=== PATIENT | female | born 1975 | race Caucasian/White ===

== ENCOUNTER 2022-03-09 07:55 | Day surgery (SDC) | payer BC ==
[2022-03-03 16:17] LABS: BASOPHILS # (AUTO) 0.1 X10'3 (0-0.2); BASOPHILS % (AUTO) 0.8 % (0-1); EOSINOPHILS # (AUTO) 0.3 X10'3 (0-0.9); EOSINOPHILS % (AUTO) 2.9 % (0-6); LYMPHOCYTES # (AUTO) 2.6 X10'3 (1.1-4.8); MEAN CORPUSCULAR HEMOGLOBIN 27.9 PG (27.0-31.0); MEAN CORPUSCULAR HGB CONC 33.4 g/dL (33.0-36.5); MEAN CORPUSCULAR VOLUME 83.6 FL (78-98); MEAN PLATELET VOLUME 8.1 FL (7.4-10.4); MONOCYTES # (AUTO) 0.6 X10'3 (0-0.9); NEUTROPHILS # (AUTO) 5.2 X10'3 (1.8-7.7); NEUTROPHILS % (AUTO) 59.3 % (42-75); PRE OP HEMOGLOBIN 14.4 g/dL (12.0-16.0); PRE OP PLATELET COUNT 362 X10'3 (140-440); RED BLOOD COUNT 5.14 X10'6 (4.20-5.60); RED CELL DISTRIBUTION WIDTH 13.2 % (11.5-14.5)
[2022-03-03 16:23] LABS: PRE OP INR 1.1 INR; PRE OP PROTIME 10.9 SECONDS (9.0-12.0)
[2022-03-03 16:25] LABS: ALBUMIN 4.1 G/DL (3.4-5.0); ALBUMIN/GLOBULIN RATIO 0.9 (1.1-1.5); ALKALINE PHOSPHATASE 83 IU/L (46-116); BLOOD UREA NITROGEN 17 MG/DL (7-18); BUN/CREATININE RATIO 16.3 (6.6-38.0); CALCIUM 9.4 MG/DL (8.5-10.1); CHLORIDE 101 MMOL/L (99-107); CREATININE 1.04 MG/DL (0.40-0.90); PRE OP ALT 37 U/L (30-65); PRE OP ANION GAP 11 (8-16); PRE OP AST 23 U/L (10-37); PRE OP BILIRUB, TOTAL 0.4 MG/DL (0.0-1.0); PRE OP GLUCOSE 99 MG/DL (70-104); PRE OP POTASSIUM 3.7 MMOL/L (3.4-5.1); PRE OP SODIUM 138 MMOL/L (135-145); TOTAL CARBON DIOXIDE 25.7 MMOL/L (24-32); TOTAL PROTEIN 8.6 G/DL (6.4-8.2); eGFR 57 ML/MIN
[2022-03-09] VITALS (9 sets, daily range): BP systolic 131–160; BP diastolic 92–102
[~2022-03-09] VITALS: Ht 172.7 cm; Wt 108.5 kg
[~2022-03-09 07:55] MED LIST: LIDOcaine 1% W/epiNEPHrine 1:100,000 20ml vial ONE; NORT25CA PO; cocaine 4% topical solution 4ml bottle ONE; diazepam 5mg tablet PO ONE; famotidine 20mg tablet PO ONE; mupirocin 2% ointment 22GM ONE; oxymetazoline 15 ML nasal spray NS ONE; ringers solution, lacted 1,000 ML IV SCH
--- NOTE | 2022-03-09 08:15 | NUR ---
PT PREPPED FOR SURGERY, PT VERY ANXIOUS, BLOOD PRESSURE SLIGHTLY ELEVATED AT 147/102, WILL RECHECK IN AN HOUR PTCRYING WHEN SHE HEARD SHE NEEDED TO REPEAT THE COVID TEST, STATES SHE HAD A BAD EXPERIENCE AND IT WAS VERY PAINFUL, TESTING COMPLETED WITHOUT DIFFICULTY. I TRIED TWICE FOR HER IV, FELISHA ZARATE TRIED TWICE ALSO AND WAS ABLE TO GET IT IN THE LEFT AC. BLOOD SUGAR 114. PT COMPLAINS OF CHRONIC FACIAL PAIN AFTER JAW SURGERY
--- NOTE | 2022-03-09 09:47 | NUR ---
BLOOD PRESSURE RECHECKED NOW 128/85, PATIENT STATES SHE FEELS CALMER
[2022-03-09] MEDS ORDERED: midazolam 1 mg/ML 2ml injection ONE (10:22)
[2022-03-09] MEDS ORDERED: fentaNYL/PF 50MCG/1 ML 2ML syringe ONE (10:22)
[2022-03-09] MEDS ORDERED: propofol inj 20 ML IV ONE (10:22)
[2022-03-09] MEDS ORDERED: sevoflurane 250ml liquid IH ONE (10:27)
[2022-03-09] MEDS ORDERED: meperidine/PF 25mg/ml syringe IV PRN ×2 (11:00)
[2022-03-09] MEDS ORDERED: ringers solution, lacted 1,000 ML IV SCH (11:00)
[2022-03-09] MEDS ORDERED: ondansetron/PF 4mg/2ml inj IV PRN (11:00)
[2022-03-09] MEDS ORDERED: proCHLORperazine 10 MG/2 ml inj IV PRN (11:00)
[2022-03-09] MEDS ORDERED: morphine 2 MG/ML inj. syringe IV PRN (11:00)
[2022-03-09] MEDS ORDERED: morphine 4 MG/ML inj SYRINge IV PRN (11:00)
[2022-03-09] MEDS ORDERED: ondansetron/PF 4mg/2ml inj ONE (11:59)
[2022-03-09] MEDS ORDERED: dexamethasone sod phosphate 4mg/ml inj. ONE (12:00)
--- NOTE | 2022-03-09 12:16 | NUR ---
Received from OR via [facility] , accompanied by Anesthesiologist DR GOODWIN and report given by Anesthesiolgist. PT PRESENTS WITH 20G RIGHT AC, NASAL DRESSING CDI, VSS. Addendum: 03/09/22 at 1224 by Beatrice Lake RN, RN Amended: Links added.
[2022-03-09] MEDS: meperidine/PF 25mg/ml syringe IV PRN ×2 (12:29→12:51)
[2022-03-09] MEDS ORDERED: salt irrigation nasal spray 45 ML SPRAY NS PRN (12:35)
[2022-03-09] MEDS ORDERED: acetaminophen w/codeine (30MG) #3 tablet PO ONE (12:40)
--- NOTE | 2022-03-09 13:10 | NUR ---
PT TAKEN TO PAS AT 1310. Addendum: 03/09/22 at 1316 by Beatrice Lake RN RN Amended: Links added.
--- NOTE | 2022-03-09 13:14 | NUR ---
PT TAKEN TO FELISHA QUINN RN TO TAKE OVER CARE OF PT. Addendum: 03/09/22 at 1316 by Beatrice Lake RN, RN Amended: Links added.
--- NOTE | 2022-03-09 13:15 | NUR ---
RECEIVED PT FROM PACU. ALERT AND AWAKE. STATES PAIN 6/10 NASAL AREA. PER HORTICULTURAL SPECIALTY GROWER PT JUST RECEIVED MORPHINE IV FOR THE PAIN. VSS. NASAL DSG DCI. IV PATENT #20 RIGHT AC. WATER AND CRACKERS GIVEN TO PT UPON HER REQUEST.
--- NOTE | 2022-03-09 14:35 | NUR ---
VSS. STATES IMPROVING PAIN 4/10 NASAL POST PO MEDICATION. NASAL DSG CDI. TOLERATING PO WELL. DC INSTRUCTIONS REVIEWED WITH PT WHO VERBALIZED UNDERSTANDING AND ALL SUPPLIES GIVEN, OFFERED TO REVIEW INSTRUCTIONS WITH LANEY WHICH PT DECLINED. IV DC'D WITH CANNULA INTACT AND DSG APPLIED. DC VIA WC WITH PERSONAL BELONGINGS(PURSE,PHONE,WALLET,ROSE) TO PVT AUTO WITH LANEY TO RECEIVE. Addendum: 03/09/22 at 1512 by Francisca Yee RN Amended: Links added.
== END 2022-03-09 14:36 | disposition home or self-care (01) ==
LOC: PAS 07:55
PROVIDERS: ATTEND Otolaryngology
DX: J32.8 Other chronic sinusitis (principal); J33.8 Other polyp of sinus; G47.30 Sleep apnea, unspecified; Z20.822 Contact with and (suspected) exposure to COVID-19; Z72.89 Other problems related to lifestyle; Z79.899 Other long term (current) drug therapy; Z98.890 Other specified postprocedural states; Z87.891 Personal history of nicotine dependence; Z87.442 Personal history of urinary calculi; Z79.01 Long term (current) use of anticoagulants
CPT/HCPCS: 31253; 31267; 36415; 61782; 80053; 82948; 85025; 85576; 85610; 85730; 87070; 87075; 87635; A6402; C9250; C9803; J1100; J2175; J2250; J2270; J2405; J2704; J3010; J3490; J7030; J7040; J7120; U0003; U0005; Z7506; Z7508; Z7512; 87077; 87186; A4618; A7000